=== PATIENT | male | born 1945 ===

== ENCOUNTER 2018-01-03 14:56 | Inpatient (IN) | payer OTHER ==
[2018-01-03] MEDS ORDERED: BISACODYL 10 MG SUPP PR PRN (17:09)
[2018-01-03] MEDS ORDERED: SENNOSIDES 1 TAB PO PRN (17:09)
--- NOTE | 2018-01-03 17:58 | PDOREHIP ---
Admission [facility] - Admission - 3 Day Assessment Period Admission Date/Day 1: 01/03/18 Day 2: 01/04/18 Day 3: 01/05/18 - Active Diagnoses Comorbidities and Co-existing Conditions at Admission: 63127. DM (e.g. diabetic retinopathy, nephropathy, and neuropathy) - Skin Conditions Unhealed Pressure Ulcer (1 or more/Stage 1 or >)-Admission: 0. No
--- NOTE | 2018-01-03 18:36 | GHP ---
[f rep st] HISTORY AND PHYSICAL POST ADMISSION PHYSICIAN EVALUATION AND REHABILITATION TREATMENT PLAN DATE OF ADMISSION: 01/03/2018 DATE OF EVALUATION: 01/03/2018 TIME OF EVALUATION: 1715 REFERRING FACILITY: [facility] REFERRING PHYSICIAN: Damon Richey MD IMPAIRMENT GROUP: 1.2 DATE OF ONSET: 01/01/2018 REFERRING PHYSICIAN: Dr. Richey CONSULTING PHYSICIAN: Dr. Kelly, Neurology REHABLITATION DIAGNOSIS: Cerebrovascular accident. ETIOLOGIC DIAGNOSIS: Right body involvement (left brain). HISTORY OF PRESENT ILLNESS: This patient came to [facility] with left-sided neglect, weakness, and visual field loss. His found him lying in the shower with left-sided weakness. At [facility] he was found to have a subacute to chronic right frontal infarct on head CT. Subsequent MRI of the brain showed an acute right posterior cerebral artery territory infarct as well as small bicerebellar infarcts. There were old parietal lobe infarcts. He was not a candidate for thrombolysis due to being on anticoagulation with dabigatran. He had also been on aspirin, so this was considered a failure of anticoagulation. Echocardiogram showed a borderline low ejection fraction at 50%, left atrial enlargement, mild right pulmonary hypertension with a right ventricular systolic pressure of 28 mmHg, but no bubble study was done due to poor image quality given his body habitus. LABS AND RADIOLOGY STUDIES: Basic metabolic profile on 01/01/2018 was consistent with chronic renal insufficiency. His creatinine was 1.35 and estimated GFR was 52.1. CBC was normal on 01/01/2018 and 01/02/2018. On 2017 he appeared to have some dehydration with some hemoconcentration. Liver function tests on 01/02/2018 revealed mildly elevated ALT and AST with ALT of 109, an AST of 66. Otherwise, liver functions were within normal limits. Hemoglobin A1c was 6.6. Lipid panel showed a total cholesterol of 185 and an LDL of 114 and HDL of 48. Magnesium was normal. Coagulation studies were overall normal. He had a slightly elevated INR at 1.4. TSH was normal. Troponin was negative. Urinalysis was normal. PRECAUTIONS: He is a fall risk. ACTIVE COMORBIDITIES: He has the active comorbidity of morbid obesity given that he has obesity plus hypertension and diabetes mellitus. PAST MEDICAL HISTORY: 1. Atrial fibrillation. 2. Hypertension. 3. Obstructive sleep apnea for which he uses CPAP. 4. Gout. 5. Dyslipidemia. 6. Arthritis. 7. Congestive heart failure. PAST SURGICAL HISTORY: 1. Nasal septoplasty for a football injury. 2. Herniorrhaphy. 3. An arthroscopic surgery on the right knee for a torn meniscus. 4. Cardiac ablation. 5. Tonsillectomy and adenoidectomy. PRE-HOSPITAL MEDICATIONS: 1. Dabigatran 150 mg p.o. twice daily. 2. Allopurinol 300 mg p.o. daily. 3. Aspirin 81 mg p.o. daily. 4. Bisoprolol/hydrochlorothiazide 10/6.25 mg 1 p.o. twice daily. 5. Colchicine 0.6 mg p.o. q.a.m. 6. Doxepin 10 mg p.o. at bedtime. 7. Furosemide 40 mg p.o. daily. ALLERGIES: There are no known drug allergies. PSYCHOSOCIAL HISTORY: He is . He lives with his . He is a nonsmoker. He uses occasional alcohol. 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 FAMILY HISTORY: His mother had liver cirrhosis and alcohol abuse. His father had heart disease. REVIEW OF SYSTEMS: He reports some right shoulder discomfort. He said he overdid it doing bench presses at the gym with his personal computer network analyst. However, he has full range of motion. He denies fevers, chills, weight change, cough, dyspnea, chest pain, palpitations, nausea, vomiting, constipation, diarrhea. He has a good appetite. He denies dysuria or urinary frequency. He does not feel that he has any weakness. He is not aware of any difficulty swallowing. He denies any abnormal sensory phenomena including no numbness or tingling in the extremities. Otherwise, a 10-point review of systems is negative. PHYSICAL EXAMINATION: VITAL SIGNS: Blood pressure is 162/88, heart rate is 65 , respiratory rate is 18, oxygen saturation is 90% on room air. Temperature is 37.5 degrees centigrade. His weight is 95.5 kg for a body mass index of 32. GENERAL: This is an obese man, sitting at the dining table, eating dinner with his , cooperative and in no acute distress. HEENT: Extraocular movements are intact. Pupils are equal, round, reactive to light. Mucous members are moist. Dentition is in good condition. He has a mildly crowded airway, Mallampati class 2. NECK: Full and supple. HEART: Irregular. There are no murmurs, rubs, or gallops. LUNGS: Clear to auscultation bilaterally. ABDOMEN : Soft, obese, nontender, nondistended with normoactive bowel sounds. EXTREMITIES: There is no cyanosis, clubbing, or edema. He has tenderness in the right proximal humerus, bicipital groove. NEUROLOGIC: He is alert and oriented x3. Cranial nerves 2-12 are grossly intact. There is no focal weakness. Sensation is intact to light touch. Deep tendon reflexes are 2+ bilaterally at the biceps, patellar, and Achilles tendons. Visual melgar show a major left visual field cut by confrontation. There is no tremor and no bradykinesia. Rapid alternating movements appear to be intact. CURRENT LEVEL OF FUNCTION: Per the pre-admission screen. Regarding diet, feeding, and swallowing: He was on a regular diet with thin liquids. He required setup. For grooming, he needed assistance. For bathing, he needed assistance. For dressing he needed assistance. For toileting he needed assistance. Bed mobility required minimal assistance. Transfers were done with contact guard assist using a front-wheeled walker. Balance seated required close supervision and standing required minimal assist. Regarding gait , he was able to ambulate 300 feet with moderate assistance. He had left neglect and also tended to veer to his right. Regarding cognition, he was noted to be oriented x3. He could follow 1-step commands. He had decreased safety awareness and needed assistance to identify errors. He was considered a fall risk and he had confusion. He was also considered impulsive. There appear to be no significant changes on his current exam from the pre- admission screen. IMPRESSION: This is a 72-year-old man who apparently has suffered more than 1 stroke, subacute to the right parietal lobe and acute infarcts in the right posterior cerebral artery territory, as well as bicerebellar infarcts. These strokes represent anticoagulation failure as he was on dabigatran for atrial fibrillation as well as aspirin. Due to the size and extent of the strokes, anticoagulation was discontinued and he is on aspirin 81 mg daily only for approximately 1 week or until 01/08/2018. We will need to consult with Neurology regarding indication to resume anticoagulation. Per Neurology notes, they were considering initiating apixaban after approximately a week. He was medically stabilized and had evaluation by PT, OT, and speech and language pathology. His major deficits are left visual field cut versus hemineglect and difficulties with balance and ambulation. He is appropriate for inpatient rehabilitation. His goal is to complete a rehabilitation stay and then discharge home with his family and any home health care or DME as needed. For a safe discharge, it is expected that he will achieve modified independence with mobility, ADLs and medication management. He will need to have medication education. There will need to be neurologic education for the family and other people caring for him. He will need to have improved visual perception or be able to adapt to his deficit. He will have therapy with physical therapy, occupational therapy, and speech and language pathology for 60 minutes per day for each discipline on 5-7 days of the week. His expected duration of stay is 17 days. It is expected that upon discharge he will continue to benefit from home health services including speech and language pathology, occupational therapy, and physical therapy as well as a stroke support group. PLAN: 1. Cerebrovascular accident with impaired balance and left visual field cut versus hemineglect. PT and OT to optimize his mobility and functional status for his discharge home at the modified independent level. 2. Possible cognitive effects of his CVA with decreased safety awareness noted on the preadmission screen, to be assessed and treated per Speech and Language Pathology. 3. Secondary stroke prophylaxis. Initially only aspirin as an antithrombotic with a plan to resume anticoagulation with apixaban after approximately a week. We will need to consult with Neurology regarding when this should be initiated. Continue atorvastatin. Continue blood pressure control with metoprolol/hydrochlorothiazide. 4. History of congestive heart failure for which he was treated with furosemide. He will be monitored closely regarding fluid status and cardiorespiratory function. 5. Hypertension. Continue bisoprolol/hydrochlorothiazide combo. Adjust or augment as needed. 6. Chronic renal insufficiency, stage 3. This should be taken into consideration when considering pharmacology and should exercise some caution regarding avoiding over diuresis. 7. History of gout. Continue allopurinol and colchicine. 8. Obstructive sleep apnea. Continue CPAP at night. Additionally, he has been chronically on doxepin at h.s. to assist in sleep and this will be continued. 9. Prophylaxis. He appears to have good mobility and has no hemiparesis, especially given the size and extent of his of his stroke and the contraindication for oral anticoagulation, we will not initiate DVT prophylaxis at present. He will have pharmacologic DVT prophylaxis at present. He will have SCDs at night. /[id number]/MODL MTDD
[2018-01-03] MEDS: BISOPROLOL/HCTZ 10/6.25MG 1 EACH TAB PO SCH (20:12)
[2018-01-03] MEDS: ACETAMINOPHEN 325 MG TAB PO PRN (20:12)
[2018-01-03] MEDS: ATORVASTATIN CALCIUM 40 MG TAB PO SCH (20:12)
[2018-01-03] MEDS: DOXEPIN HCL 10 MG CAP PO SCH (20:12)
[2018-01-04] MEDS: ASPIRIN EC 81 MG TAB PO SCH (08:49)
[2018-01-04] MEDS: BISOPROLOL/HCTZ 10/6.25MG 1 EACH TAB PO SCH ×2 (08:49→21:55)
[2018-01-04] MEDS: COLCHICINE 0.6 MG CAP/TAB PO SCH (08:49)
[2018-01-04] MEDS: ALLOPURINOL 300 MG TAB PO SCH (08:49)
--- NOTE | 2018-01-04 10:11 | SOAPPROG ---
SOAP Progress Note Assessment/Plan: A/P: Mr. Jose Dickens is a 72 y/o male s/p acute and subacute CVA. 1. CVA with impaired balance and left visual field cut vs hemineglect. PT and OT to optimize his mobility and functional status for his discharge home at the [facility]. 2. Possible cognitive effets of his CVA with decreased safety awareness noted on the preadmission screen. To be assessed and treated by [employer]. 3. Secondary stroke prophylaxis.. Initially only ASA with the plan to resume anticoagulation after approximately 1 week. Likely initiate with apixaban. Will discuss with neurology regarding when this should be initiated. Continue atorvastatin and BP control. 4. History of CHF - was treated with furosemide. Will continue monitor regarding his fluid statu and his cardiorespiratory function. 5. Chronic renal insufficiency - stage 3. This should be taken into consideration when considering pharmacology and care if using diuretics 6. History of gout - Not currently in a gout flare. Continue home meds of colchicine and allopurinol. 7. JORGE ALBERTO - Cont CPAP at night. 8. Insomnia - Pt using doxepin - will continue to utilize doxepin at night 9. PPX - No DVT PPX at present - pt relatively mobile and given large CVA history will utilize nightly SCD's Pt doing well today - he was noted to be hypoxic last night, Unclear if had his CPAP on at the time or not. Pt without O2 needs during the day so suspect it is more consistent with his JORGE ALBERTO - Will continue to monitor. No evidence of neurologic changes. Monitoring his HR - went as low as 47 - pt asymptomatic - Reports that usually in the 50's at baseline. Was 56 on manual eval this morning. 01/04/18 10:00 Subjective: No new concerns - No fevers/chills overnight. Pt feeling ready for his rehabilitation and ability to better mobilize. Slept well without concerns. no new respiratory concerns this morning - Per review with RN - was noted to be 78 on random check last night - unclear about CPAP wear during this check. Objective: Vital Signs Temp Pulse Resp BP Pulse Ox 36.9 C 47 L 14 147/89 H 91 L 01/04/18 06:49 01/04/18 08:49 01/04/18 06:37 01/04/18 08:49 01/04/18 08:53 02/01/04/18 01/05/18 05:59 05:59 05:59 Intake Total 737 600 Output Total 350 Balance 387 600 Physical Exam - Physical Exam General Appearance: alert, no apparent distress Respiratory: lungs clear, other (No wheezing nor crackles noted on exam) Cardiac/Chest: other (Mildly bradycardic this morning but otherwise normal) Abdomen: other (soft, +BS ,Obese) Neuro/Psych: alert, normal mood/affect ICD10 Worksheet Patient Problems: Problems Problem Status Onset CVA (cerebral vascular accident) Acute
[2018-01-04] MEDS ORDERED: PNEUMOC 13-VAL CONJ-DIP CRM/PF 0.5 ML SYR IM ONE (12:13)
[2018-01-04] MEDS ORDERED: FLU VACC QS 2017-18 (3YR+)/PF 0.5 ML SYR (FLUARIX QUAD) IM ONE (12:13)
[2018-01-04] MEDS: DOXEPIN HCL 10 MG CAP PO SCH (20:48)
[2018-01-04] MEDS: ATORVASTATIN CALCIUM 40 MG TAB PO SCH (20:48)
[2018-01-05] MEDS: ALLOPURINOL 300 MG TAB PO SCH (08:36)
[2018-01-05] MEDS: BISOPROLOL/HCTZ 10/6.25MG 1 EACH TAB PO SCH ×2 (08:37→20:03)
[2018-01-05] MEDS: COLCHICINE 0.6 MG CAP/TAB PO SCH (08:37)
[2018-01-05] MEDS: ASPIRIN EC 81 MG TAB PO SCH (08:37)
--- NOTE | 2018-01-05 09:45 | SOAPPROG ---
SOAP Progress Note Assessment/Plan: A/P: Mr. Jose Dickens is a 72 y/o male s/p acute and subacute CVA. 1. CVA with impaired balance and left visual field cut vs hemineglect. PT and OT to optimize his mobility and functional status for his discharge home at the [facility]. 2. Possible cognitive effets of his CVA with decreased safety awareness noted on the preadmission screen. To be assessed and treated by [facility]. 3. Secondary stroke prophylaxis.. Initially only ASA with the plan to resume anticoagulation after approximately 1 week. Likely initiate with apixaban. Will discuss with neurology regarding when this should be initiated. Continue atorvastatin and BP control. 4. History of CHF - was treated with furosemide. Will continue monitor regarding his fluid statu and his cardiorespiratory function. 5. Chronic renal insufficiency - stage 3. This should be taken into consideration when considering pharmacology and care if using diuretics 6. History of gout - Not currently in a gout flare. Continue home meds of colchicine and allopurinol. 7. JORGE ALBERTO - Cont CPAP at night. 8. Insomnia - Pt using doxepin - will continue to utilize doxepin at night 9. PPX - No DVT PPX at present - pt relatively mobile and given large CVA history will utilize nightly SCD's Pt doing well today - Overnight Pulse ox while on CPAP 89% and above - when off of the CPAP was 81%. May need another titration study vs O2 bleed - Will discuss with weekend team about this set up. 01/05/18 09:42 Subjective: no new concerns today - continues to do well - enjoying his time with therapy and increased mobility that he has. Objective: Vital Signs Temp Pulse Resp BP Pulse Ox 37.1 C 51 L 14 143/87 H 92 01/05/18 06:02 01/05/18 08:37 01/05/18 06:02 01/05/18 08:37 01/05/18 06:02 01/04/18 01/05/18 01/06/18 05:59 05:59 05:59 Intake Total 737 1230 356 Output Total 350 600 Balance 387 630 356 Physical Exam - Physical Exam General Appearance: alert, no apparent distress Respiratory: lungs clear Cardiac/Chest: regular rate, rhythm Abdomen: non-tender, soft Neuro/Psych: alert, normal mood/affect ICD10 Worksheet Patient Problems: Problems Problem Status Onset CVA (cerebral vascular accident) Acute
[2018-01-05] MEDS: ATORVASTATIN CALCIUM 40 MG TAB PO SCH (20:03)
[2018-01-05] MEDS: DOXEPIN HCL 10 MG CAP PO SCH (20:06)
[2018-01-06] MEDS: ASPIRIN EC 81 MG TAB PO SCH (08:54)
[2018-01-06] MEDS: BISOPROLOL/HCTZ 10/6.25MG 1 EACH TAB PO SCH (08:54)
[2018-01-06] MEDS: ALLOPURINOL 300 MG TAB PO SCH (08:54)
[2018-01-06] MEDS: COLCHICINE 0.6 MG CAP/TAB PO SCH (08:57)
--- NOTE | 2018-01-06 09:03 | SOAPPROG ---
SOAP Progress Note Assessment/Plan: Assessment: * Cerebrovascular accident 01/01/2018, with impaired balance and left visual field cut versus hemineglect. * Initial functional independence measure 94. Supervision level for bed mobility and transfers. Ambulated 500 ft with standby assist using no device. Negotiated 18 stairs with 1 rail and cues to find the rail on the left side. OT notes that the left upper extremity wonders when he is not using it. He is impulsive. He requires contact guard assist for safety due to visual loss. * Continue PT and OT to optimize his mobility and functional status for his discharge home at the modified independent level. * Possible cognitive effects of his CVA * Reduced insight and safety awareness. * Continue Speech and Language Pathology. * Secondary stroke prophylaxis. * Discussed with Neurology, Dr. Manpreet noonan, 01/06/2018. Repeat head CT tomorrow, 01/07/2018. If no other abnormalities besides expected evolution of stroke, initiate apixaban. * Continue atorvastatin. Continue blood pressure control * Hypertension. Inadequate control. * Bisoprolol/hydrochlorothiazide combo should not be twice daily as evening dose promote nocturia. Will change to daily. * Add amlodipine 2.5 mg p.o. Q.day. Continue to monitor blood pressures. Will likely need to increase amlodipine. * History of congestive heart failure for which he was treated with furosemide. He will be monitored closely regarding fluid status and cardiorespiratory function. * Chronic renal insufficiency, stage 3. This should be taken into consideration when considering pharmacology and should exercise some caution regarding avoiding over diuresis. * History of gout. Continue allopurinol and colchicine. *Obstructive sleep apnea. Continue CPAP at night. Additionally, he has been chronically on doxepin at [facility].s. to assist in sleep and this will be continued. * Prophylaxis. He appears to have good mobility and has no hemiparesis. Continue aspirin and start apixaban as above depending on head CT result. He will have SCDs at night. Attended staffing, 15 min. Discussed with case management, dietitian, nursing, PT, OT, TUBE COVERER. Will likely continue to need supervision for mobility due to his visual deficit. Discharge date set for 01/10/2018. Follow-up Neuro- Ophthalmology Dr. Richey and cardiology Dr. Munoz. 01/06/18 13:13 Subjective: No complaints. Reports that he sleeps in spite of the CPAP; does not like it but appreciates what it does. Reports he is up at night to urinate. Has no particular preferences regarding blood pressure pills. Objective: Vital Signs Temp Pulse Resp BP Pulse Ox 37.1 C 52 L 12 147/80 H 95 01/05/18 20:00 01/06/18 08:54 01/06/18 08:00 01/06/18 08:54 01/06/18 08:00 01/05/18 01/06/18 01/07/18 05:59 05:59 05:59 Intake Total 1230 1272 Output Total 600 Balance 630 1272 - Time Spent With Patient Time Spent With Patient: Greater than 35 min floor time today, including more than 50% of time in coordination of care during staffing, and counseling patient and . Physical Exam - Physical Exam General Appearance: WD/WN, alert, no apparent distress, obese Respiratory: normal breath sounds, No crackles, No rhonchi, No wheezing Cardiac/Chest: regular rate, rhythm, No edema, No diastolic murmur, No systolic murmur Skin: normal color, warm/dry Neuro/Psych: alert, normal mood/affect, oriented x 3 ICD10 Worksheet Patient Problems: Problems Problem Status Onset CVA (cerebral vascular accident) Acute
[2018-01-06] MEDS: DOXEPIN HCL 10 MG CAP PO SCH (20:31)
[2018-01-06] MEDS: ATORVASTATIN CALCIUM 40 MG TAB PO SCH (20:31)
[2018-01-07] MEDS: ACETAMINOPHEN 325 MG TAB PO PRN (05:49)
[2018-01-07] MEDS: ASPIRIN EC 81 MG TAB PO SCH (08:54)
[2018-01-07] MEDS: ALLOPURINOL 300 MG TAB PO SCH (08:54)
[2018-01-07] MEDS: COLCHICINE 0.6 MG CAP/TAB PO SCH (08:55)
[2018-01-07] MEDS: BISOPROLOL/HCTZ 10/6.25MG 1 EACH TAB PO SCH (08:55)
[2018-01-07] MEDS: POLYETHYLENE GLYCOL 3350 17 GM PKT PO SCH (08:56)
[2018-01-07] MEDS: SENNOSIDES 1 TAB PO SCH ×2 (08:57→20:20)
--- NOTE | 2018-01-07 09:56 | SOAPPROG ---
SOAP Progress Note Assessment/Plan: 72-year-old male with subacute stroke in the right parietal lobe in acute infarcts in the right posterior cerebral artery territory and bilateral cerebellar infarcts Today's update: Patient doing well, making good neurological progress. Had absence of any neglect or visual field cut on exam. He has a rash on his back today, no new medications. He notes that it is itchy. Trial of a corticosteroid cream. Monitor closely * Cerebrovascular accident 01/01/2018, with impaired balance and left visual field cut versus hemineglect being followed, improving. * Initial functional independence measure 94. Supervision level for bed mobility and transfers. Ambulated 500 ft with standby assist using no device. Negotiated 18 stairs with 1 rail and cues to find the rail on the left side. OT notes that the left upper extremity wonders when he is not using it. He is impulsive. He requires contact guard assist for safety due to visual loss. * Continue PT and OT to optimize his mobility and functional status for his discharge home at the modified independent level. * Possible cognitive effects of his CVA * Reduced insight and safety awareness. * Continue Speech and Language Pathology. * Secondary stroke prophylaxis. * Head CT today. If no other abnormalities besides expected evolution of stroke , initiate apixaban. * Continue atorvastatin. Continue blood pressure control * Hypertension. Inadequate control. * Bisoprolol/hydrochlorothiazide combo should not be twice daily as evening dose promote nocturia. Will change to daily. * Add amlodipine 2.5 mg p.o. Q.day. Continue to monitor blood pressures. Will likely need to increase amlodipine. * History of congestive heart failure for which he was treated with furosemide. He will be monitored closely regarding fluid status and cardiorespiratory function. Daily weights ordered * Chronic renal insufficiency, stage 3. This should be taken into consideration when considering pharmacology and should exercise some caution regarding avoiding over diuresis. * History of gout. Continue allopurinol and colchicine. *Obstructive sleep apnea. Continue CPAP at night. Additionally, he has been chronically on doxepin at [facility].s. to assist in sleep and this will be continued. * Prophylaxis. He appears to have good mobility and has no hemiparesis. Continue aspirin and start apixaban as above depending on head CT result. He will have SCDs at night. Home with supervision from his . Discharge date set for 01/10/2018. Follow- up Neuro-Ophthalmology Dr. Richey and cardiology Dr. Munoz. Consider follow- up with Physical Medicine and Rehabilitation to get back to his previously very active lifestyle. Notably, he might want to discuss beta-gerson usage in the setting of heavy exercise that he is accustomed to. 01/07/18 09:52 01/07/18 09:57 Subjective: Chief complaint: Exercise tolerance No acute events overnight. Patient making excellent progress in rehabilitation. He does have a rash on his back that he has not had before, states that is somewhat itchy. No fever or other new symptoms. No new medications. Patient denies any new shortness of breath or chest pain, no new numbness, tingling, or weakness. States he was previously extremely active including running and lifting weights and would like to get back to that safely. 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 I pointed out that he is on a beta-gerson that can affect his exercise performance. He may want to consider defer medication without with his infantry assaultman after discharge. Objective: Vital Signs Temp Pulse Resp BP Pulse Ox 37.2 C 49 L 16 134/65 H 93 01/07/18 06:44 01/07/18 08:55 01/07/18 06:44 01/07/18 08:55 01/07/18 06:44 01/06/18 01/07/18 01/08/18 05:59 05:59 05:59 Intake Total 1272 1070 Balance 1272 1070 Physical Exam - Physical Exam General Appearance: alert, no apparent distress Respiratory: No respiratory distress, No accessory muscle use Cardiac/Chest: normal peripheral pulses, regular rate, rhythm, No edema Back: Other (Rash, papular with erythematous borders, no hemorrhage or petechiae.) Skin: rash, other (As above) Extremities: No pedal edema, No swelling Neuro/Psych: alert, normal mood/affect, other (No visual field deficit appreciated on visual field testing, no neglect noted on double simultaneous stimulation.) ICD10 Worksheet Patient Problems: Problems Problem Status Onset CVA (cerebral vascular accident) Acute
[2018-01-07] MEDS: HYDROCORTISONE 0.5% CREAM TP SCH ×2 (14:42→21:56)
[2018-01-07] MEDS: ATORVASTATIN CALCIUM 40 MG TAB PO SCH (20:20)
[2018-01-07] MEDS: DOXEPIN HCL 10 MG CAP PO SCH (20:20)
[2018-01-08] MEDS: ASPIRIN EC 81 MG TAB PO SCH (08:38)
[2018-01-08] MEDS: ALLOPURINOL 300 MG TAB PO SCH (08:38)
[2018-01-08] MEDS: COLCHICINE 0.6 MG CAP/TAB PO SCH (08:40)
[2018-01-08] MEDS: BISOPROLOL/HCTZ 10/6.25MG 1 EACH TAB PO SCH (08:41)
[2018-01-08] MEDS: POLYETHYLENE GLYCOL 3350 17 GM PKT PO SCH (08:41)
[2018-01-08] MEDS: SENNOSIDES 1 TAB PO SCH ×2 (08:41→20:28)
[2018-01-08] MEDS: HYDROCORTISONE 0.5% CREAM TP SCH ×2 (10:00→23:00)
--- NOTE | 2018-01-08 11:19 | SOAPPROG ---
SOAP Progress Note Assessment/Plan: Assessment: * Cerebrovascular accident 01/01/2018, with impaired balance and left visual field cut versus hemineglect. * Initial functional independence measure 94. Supervision level for bed mobility and transfers. Ambulated 500 ft with standby assist using no device. Negotiated 18 stairs with 1 rail and cues to find the rail on the left side. OT notes that the left upper extremity wonders when he is not using it. He is impulsive. He requires contact guard assist for safety due to visual loss. * Continue PT and OT to optimize his mobility and functional status for his discharge home at the modified independent level. * Possible cognitive effects of his CVA * Reduced insight and safety awareness. * Continue Speech and Language Pathology. * Secondary stroke prophylaxis. * Discussed with Neurology, Dr. Higuera, 01/06/2018. Repeat head CT 01/07/2018. * CT showed no hemorrhage, evolving right occipital and thalamic infarcts. * Initiate apixaban 5 mg twice daily starting 01/08/2018. * Continue atorvastatin. Continue blood pressure control * Hypertension. Inadequate control. * Bisoprolol/hydrochlorothiazide combo should not be twice daily as evening dose promote nocturia. Will change to daily. * Add amlodipine 2.5 mg p.o. Q.day. Continue to monitor blood pressures. Will likely need to increase amlodipine. * History of congestive heart failure for which he was treated with furosemide. He will be monitored closely regarding fluid status and cardiorespiratory function. * Chronic renal insufficiency, stage 3. This should be taken into consideration when considering pharmacology and should exercise some caution regarding avoiding over diuresis. * History of gout. Continue allopurinol and colchicine. *Obstructive sleep apnea. Continue CPAP at night. Additionally, he has been chronically on doxepin at [facility] to assist in sleep and this will be continued. * Prophylaxis. He appears to have good mobility and has no hemiparesis. Continue aspirin and start apixaban as above depending on head CT result. He will have SCDs at night. Will likely continue to need supervision for mobility due to his visual deficit. Discharge date set for 01/10/2018. Follow-up Neuro-Ophthalmology Dr. Richey and cardiology Dr. Munoz. 01/08/18 11:17 Objective: Vital Signs Temp Pulse Resp BP Pulse Ox 36.8 C 53 L 17 106/70 94 01/08/18 06:11 01/08/18 08:41 01/08/18 06:11 01/08/18 08:41 01/08/18 06:11 01/07/18 01/08/18 01/09/18 05:59 05:59 05:59 Intake Total 1070 1652 Balance 1070 1652 Physical Exam - Physical Exam General Appearance: WD/WN, alert, no apparent distress, obese Respiratory: normal breath sounds, No crackles, No rhonchi, No wheezing Cardiac/Chest: regular rate, rhythm, No diastolic murmur, No systolic murmur Skin: normal color, warm/dry Neuro/Psych: alert, normal mood/affect, oriented x 3, abnormal gait (Slightly wide-based, with FWW) ICD10 Worksheet Patient Problems: Problems Problem Status Onset CVA (cerebral vascular accident) Acute
[2018-01-08] MEDS: ATORVASTATIN CALCIUM 40 MG TAB PO SCH (20:28)
[2018-01-08] MEDS: DOXEPIN HCL 10 MG CAP PO SCH (20:28)
[2018-01-08] MEDS: APIXABAN 5 MG TAB PO SCH (20:28)
[2018-01-08] MEDS: ACETAMINOPHEN 325 MG TAB PO PRN (20:31)
[2018-01-09] MEDS: BISOPROLOL/HCTZ 10/6.25MG 1 EACH TAB PO SCH (08:46)
[2018-01-09] MEDS: ALLOPURINOL 300 MG TAB PO SCH (08:46)
[2018-01-09] MEDS: ASPIRIN EC 81 MG TAB PO SCH (08:46)
[2018-01-09] MEDS: APIXABAN 5 MG TAB PO SCH ×2 (08:46→20:34)
[2018-01-09] MEDS: COLCHICINE 0.6 MG CAP/TAB PO SCH (08:46)
[2018-01-09] MEDS: HYDROCORTISONE 0.5% CREAM TP SCH (08:49)
--- NOTE | 2018-01-09 09:24 | PDOREHIP ---
Admission [facility] - Admission - 3 Day Assessment Period Admission Date/Day 1: 01/03/18 Day 2: 01/04/18 Day 3: 01/05/18 Discharge [facility] - Discharge - 3 Day Assessment Period 2 Days Prior to Anticipated Discharge Date: 01/08/18 1 Day Prior to Anticipated Discharge Date: 01/09/18 Anticipated Discharge Date: 01/10/18 - Discharge Skin Conditions Unhealed Pressure Ulcer (1 or more/Stage 1 or >)-Discharge: 0. No
--- NOTE | 2018-01-09 09:35 | SOAPPROG ---
[facility] Progress Note Assessment/Plan: 72-year-old male with subacute stroke in the right parietal lobe in acute infarcts in the right posterior cerebral artery territory and bilateral cerebellar infarcts Today's update: Preparing for discharge, counseled him at length on safe exercise return. Okay to return to lifting weights gradually increasing in weight. Avoid Valsalva. Return to exercise and a structured supervised fashion. A total of 35 min was spent on the floor in the care of the patient, the majority of which was spent in counseling coordination of care regarding safety when returning to exercise, prognosis, and discussing possible treatment options for hypertension. * Cerebrovascular accident 01/01/2018, with impaired balance. left visual field cut versus hemineglect that appears mostly resolved based on last exam * Initial functional independence measure 94. Supervision level for bed mobility and transfers. Ambulated 500 ft with standby assist using no device. Negotiated 18 stairs with 1 rail and cues to find the rail on the left side. OT notes that the left upper extremity wonders when he is not using it. He is impulsive. He requires contact guard assist for safety due to visual loss. * Continue PT and OT to optimize his mobility and functional status for his discharge home at the modified independent level. * Okay to gradually return to aerobic and weight lifting activities in a supervised environment. Counseled to avoid Valsalva or extreme heavy weights. Also counseled that he is at higher risk for a future stroke regardless given that he has had history of stroke. * Possible cognitive effects of his CVA * Reduced insight and safety awareness. * Continue Speech and Language Pathology. * Secondary stroke prophylaxis. * Repeat head CT showed no hemorrhage, evolving right occipital and thalamic infarcts. * Initiate apixaban 5 mg twice daily starting 01/08/2018. * Continue atorvastatin. Continue blood pressure control * Hypertension. Inadequate control. * Bisoprolol/hydrochlorothiazide combo should not be twice daily as evening dose promote nocturia. Will change to daily. * Add amlodipine 2.5 mg p.o. Q.day. Continue to monitor blood pressures. Will likely need to increase amlodipine. * Has been somewhat bradycardic, he reports it is his baseline. Counseled him that beta-gerson scan cardiac cardia and may blunt his cardiac response to exercise and that he should discuss this with his information technology coordinator after discharge. * History of congestive heart failure for which he was treated with furosemide. He will be monitored closely regarding fluid status and cardiorespiratory function. Daily weights, including after discharge he should get weekly weights. * Chronic renal insufficiency, stage 3. This should be taken into consideration when considering pharmacology and should exercise some caution regarding avoiding over diuresis. * History of gout. Continue allopurinol and colchicine. *Obstructive sleep apnea. Continue CPAP at night. Additionally, he has been chronically on doxepin at [facility] to assist in sleep and this will be continued. * Prophylaxis. He appears to have good mobility and has no hemiparesis. Continue aspirin and start apixaban as above depending on head CT result. He will have SCDs at night. Will likely continue to need supervision for mobility due to his visual deficit. Discharge date set for 01/10/2018. Follow-up Neuro-Ophthalmology Dr. Richey and cardiology Dr. Munoz. Follow up with physiatry for return to exercise activities. 01/07/18 09:52 01/07/18 09:57 01/09/18 09:31 01/09/18 09:37 Subjective: Chief complaint: Return to exercise No acute events overnight. Patient is interested in returning to exercise once he leaves the hospital. No new shortness of breath or chest pain, no new numbness, tingling, or weakness. The patient was at a high level of exercise, walking approximately half an hour for 0.5 mph and also lifting weights. He plans to return to doing so with the help of a business trainer. Counseled about effects of beta-blockers. Patient looking forward to going home, no additional concerns Objective: Vital Signs Temp Pulse Resp BP Pulse Ox 36.2 C 52 L 18 127/70 H 92 01/09/18 05:20 01/09/18 08:46 01/09/18 05:20 01/09/18 08:46 01/09/18 05:20 01/08/18 01/09/18 01/10/18 05:59 05:59 05:59 Intake Total 1652 800 Balance 1652 800 - Pending Discharge Pending Discharge Within 24 Hours: Yes Pending Discharge Date: 01/10/18 Pending Discharge Time: 11:00 Physical Exam - Physical Exam General Appearance: WD/WN, alert, no apparent distress EENT: No scleral icterus (R), No scleral icterus (L) Respiratory: No respiratory distress, No accessory muscle use Cardiac/Chest: normal peripheral pulses, regular rate, rhythm, No edema Skin: normal color, warm/dry, No cyanosis, No diaphoresis Extremities: No pedal edema, No swelling Neuro/Psych: alert, normal mood/affect ICD10 Worksheet Patient Problems: Problems Problem Status Onset CVA (cerebral vascular accident) Acute
[2018-01-09] MEDS: SENNOSIDES 1 TAB PO SCH (09:50)
[2018-01-09] MEDS: POLYETHYLENE GLYCOL 3350 17 GM PKT PO SCH (09:50)
[2018-01-09] MEDS ORDERED: SENNOSIDES 1 TAB PO PRN (11:13)
[2018-01-09] MEDS ORDERED: POLYETHYLENE GLYCOL 3350 17 GM PKT PO PRN (11:13)
--- NOTE | 2018-01-09 12:05 | PDDCSUM ---
Discharge Summary Discharge Summary: Name: Jose Dickens Admission date: 01/03/2018 Discharge date: 01/10/2018 Discharging physician: Surjit Rosa MD Admitting diagnosis: 1.2, stroke with right body involvement, left brain Discharge diagnosis: Same Comorbid diagnoses: Atrial fibrillation, hypertension, obstructive sleep apnea , gout, dyslipidemia, arthritis, congestive heart failure, chronic renal insufficiency Consultations: physical therapy, occupational therapy, speech language pathology , social work, dietary Procedures: Head CT performed on 01/07/2018 showed evolving right thalamic and occipital infarcts without evidence of hemorrhagic transformation, right frontal encephalomalacia. Reason for admission: Please see the full history and physical by Dr. Mcpherson dated 01/03/2018 for full details, briefly the patient had a subacute to chronic right frontal infarct on head CT and MRI of the brain showed acute right posterior cerebral artery territory infarct and small bilateral cerebellar infarcts on 01/01/2018 at [facility]. He did not get thrombolysis. Echocardiogram showed some CHF. He is very active at his baseline, lives with his at home. Patient was appropriate for inpatient rehabilitation and transferred on 01/03/2018 Rehabilitation course: Overall, the patient made good functional gains. His initial functional independence measure was 94. He is discharging essentially at a supervision level for all activities. Medical course was also complicated by some bradycardia that he notes is chronic, otherwise he had a relatively straightforward medical course with good functional improvements in good neurological recovery. Regarding return to his vigorous activity level, he should do this in a supervised fashion and avoid Valsalva that could increase his intracranial pressure. He will need to continue CPAP at night as his baseline. No driving until cleared by physician. Discharge plan: Home with family, 24 hr supervision. Medications at discharge: Amlodipine 2.5 mg daily Apixaban 5 mg p.o. Twice daily Aspirin enteric-coated 81 mg p. O. Daily Atorvastatin calcium 40 mg p.o. At bedtime Colchicine 0.6 mg daily Acetaminophen 650 mg p.o. Q.4 hours p.r.n. Allopurinol 300 mg p.o. Daily Bisoprolol/hydrochlorothiazide 10-6.25 1 tab p.o. Twice daily Doxepin 10 mg p.o. At bedtime Pending studies: None Issues to be addressed at follow-up: Return to activity. He will need supervised return to high-level activity including vigorous walking, running, and weight lifting. Is recommended that he work with a marketing/sales person and a on air personality on this issue. He also has some bradycardia and is on a beta- gerson and may want to discuss this with his ore washer, beta-gerson may also blunt his cardiac response to activity. Follow up: Follow up with primary care physician, Neuro-Ophthalmology, cardiology, physiatry.
[2018-01-09] MEDS: ACETAMINOPHEN 325 MG TAB PO PRN (20:34)
[2018-01-09] MEDS: DOXEPIN HCL 10 MG CAP PO SCH (20:34)
[2018-01-09] MEDS: ATORVASTATIN CALCIUM 40 MG TAB PO SCH (20:34)
[2018-01-10] MEDS: HYDROCORTISONE 0.5% CREAM TP SCH ×2 (01:43→11:32)
[2018-01-10 08:23] VITALS: RESP 17; TEMP 98.2; O2SAT 89
[2018-01-10] MEDS: ASPIRIN EC 81 MG TAB PO SCH (09:21)
[2018-01-10] MEDS: ALLOPURINOL 300 MG TAB PO SCH (09:21)
[2018-01-10] MEDS: APIXABAN 5 MG TAB PO SCH (09:21)
[2018-01-10] MEDS: BISOPROLOL/HCTZ 10/6.25MG 1 EACH TAB PO SCH (09:22)
[2018-01-10] MEDS: COLCHICINE 0.6 MG CAP/TAB PO SCH (09:23)
[2018-01-10 09:25] VITALS: BP 131/79; PULSE 59
--- NOTE | 2018-01-10 12:23 | SOAPPROG ---
SOAP Progress Note Assessment/Plan: Assessment: * Cerebrovascular accident 01/01/2018, with impaired balance. left visual field cut versus hemineglect that appears mostly resolved based on last exam * Initial functional independence measure 94. Supervision level for bed mobility and transfers. Ambulated 500 ft with standby assist using no device. Negotiated 18 stairs with 1 rail and cues to find the rail on the left side. OT notes that the left upper extremity wonders when he is not using it. He is impulsive. He requires contact guard assist for safety due to visual loss. * Continue PT and OT to optimize his mobility and functional status for his discharge home at the modified independent level. * Okay to gradually return to aerobic and weight lifting activities in a supervised environment. Counseled to avoid Valsalva or extreme heavy weights. Also counseled that he is at higher risk for a future stroke regardless given that he has had history of stroke. * Possible cognitive effects of his CVA * Reduced insight and safety awareness. * Continue Speech and Language Pathology. * Secondary stroke prophylaxis. * Repeat head CT showed no hemorrhage, evolving right occipital and thalamic infarcts. * Initiate apixaban 5 mg twice daily starting 01/08/2018. * Continue atorvastatin. Continue blood pressure control * Hypertension. This morning's blood pressure 131/79. Patient will have follow -up with primary care physician for daily blood pressure checks. * Bisoprolol/hydrochlorothiazide combo should not be twice daily as evening dose promote nocturia. Will change to daily. * Add amlodipine 2.5 mg p.o. Q.day. Continue to monitor blood pressures. Will likely need to increase amlodipine. * Has been somewhat bradycardic, he reports it is his baseline. Counseled him that beta-gerson scan cardiac cardia and may blunt his cardiac response to exercise and that he should discuss this with his president [place] after discharge. * Chronic renal insufficiency, stage 3. This should be taken into consideration when considering pharmacology and should exercise some caution regarding avoiding over diuresis. * History of gout. Continue allopurinol and colchicine. *Obstructive sleep apnea. Continue CPAP at night. Additionally, he has been chronically on doxepin at [facility] to assist in sleep and this will be continued. CURRENTLY HE IS WEARING OXYGEN PER NASAL CANNULA. PATIENT ADVISED THAT HE SHOULD ONLY WEAR THIS FOR ACTIVITIES THAT CAUSE HIM TO BECOME SHORTNESS OF BREATH. * Prophylaxis. He appears to have good mobility and has no hemiparesis. Continue aspirin and start apixaban as above depending on head CT result. He will have SCDs at night. Will likely continue to need supervision for mobility due to his visual deficit. Discharge date set for 01/10/2018. Follow-up Neuro-Ophthalmology Dr. Richey and cardiology Dr. Munoz. Follow up with physiatry for return to exercise activities. HE IS BEING DISCHARGED TODAY IN STABLE CONDITION. DISCHARGE DISPOSITION IS HOME TO . THEY HAD NO QUESTIONS REGARDING IMPENDING DISCHARGE OR MEDICATIONS. Plan: 01/10/18 12:27 Subjective: No new complaints per patient or nursing. Patient reports he is ready to be discharged back to his home. He denies shortness of breath or chest pain. He is currently wearing supplemental oxygen Objective: Vital Signs Temp Pulse Resp BP Pulse Ox 36.8 C 59 L 17 131/79 H 89 L 01/10/18 08:00 01/10/18 09:22 01/10/18 08:00 01/10/18 09:22 01/10/18 08:00 01/09/18 01/10/18 01/11/18 05:59 05:59 05:59 Intake Total 800 1930 250 Balance 800 1930 250 Physical Exam - Physical Exam General Appearance: WD/WN, alert, no apparent distress Respiratory: lungs clear, respiratory distress, other (Wearing supplemental O2.) Cardiac/Chest: regular rate, rhythm, No edema Abdomen: non-tender, soft Neuro/Psych: alert, normal mood/affect, oriented x 3 ICD10 Worksheet Patient Problems: Problems Problem Status Onset CVA (cerebral vascular accident) Acute
== END 2018-01-10 14:53 | disposition home or self-care (01) | DRG 57 ==
LOC: BREH 15:06
PROVIDERS: ADMIT Internal Medicine; ATTEND Internal Medicine
PROC: F0636ZZ Communicative/Cognitive Integration Skills Treatment of Neurological System - Whole Body (ICD-10-PCS; principal; 2018-01-03)
PROC: F07Z5FZ Bed Mobility Treatment using Assistive, Adaptive, Supportive or Protective Equipment (ICD-10-PCS; principal; 2018-01-03)
PROC: F08Z0FZ Bathing/Showering Techniques Treatment using Assistive, Adaptive, Supportive or Protective Equipment (ICD-10-PCS; principal; 2018-01-03)
PROC: F08Z1FZ Dressing Techniques Treatment using Assistive, Adaptive, Supportive or Protective Equipment (ICD-10-PCS; principal; 2018-01-03)
PROC: F08Z2FZ Grooming/Personal Hygiene Treatment using Assistive, Adaptive, Supportive or Protective Equipment (ICD-10-PCS; principal; 2018-01-03)
PROC: F07Z8FZ Transfer Training Treatment using Assistive, Adaptive, Supportive or Protective Equipment (ICD-10-PCS; principal; 2018-01-03)
DX: I69.351 Hemiplegia and hemiparesis following cerebral infarction affecting right dominant side (principal); I69.398 Other sequelae of cerebral infarction; I69.318 Other symptoms and signs involving cognitive functions following cerebral infarction; I13.0 Hypertensive heart and chronic kidney disease with heart failure and stage 1 through stage 4 chronic kidney disease, or unspecified chronic kidney disease; I50.9 Heart failure, unspecified; N18.3 Chronic kidney disease, stage 3 (moderate); G47.33 Obstructive sleep apnea (adult) (pediatric); E78.5 Hyperlipidemia, unspecified; I48.91 Unspecified atrial fibrillation; Z79.01 Long term (current) use of anticoagulants; Z79.82 Long term (current) use of aspirin; M10.9 Gout, unspecified; M19.91 Primary osteoarthritis, unspecified site; E66.09 Other obesity due to excess calories; Z68.31 Body mass index [BMI] 31.0-31.9, adult; Z82.49 Family history of ischemic heart disease and other diseases of the circulatory system; Z23 Encounter for immunization
CPT/HCPCS: 92507-GN; 92522-GN; 97110-GO; 97110-GP; 97112-GP; 97116-GP; 97162-GP; 97166-GO; 97530-GO; 97530-GP; 97535-GO; G0008; G0009; G0515-GO